=== PATIENT | female | born 1970 | race Caucasian/White ===

== ENCOUNTER 2016-11-27 20:49 | Emergency (ER) | payer BC ==
[~2016-11-27] VITALS: Ht 165.1 cm; Wt 77.2 kg
[~2016-11-27 20:49] MED LIST: ACETTAB3 OR; AMBIEN10 MG PO; AMOXICILLIN500 MG PO; AMOXICILLIN875 MG PO; AUGMENTIN500TAB PO; AUGMENTIN875TAB PO; CELEXA10 MG PO; CELEXA20 M1; DIFLUCAN150 MG PO; DILAUDID 2MG2 MG/TA1 PO; FIORICET PO; FLAGYL500 MG PO; FLUTICASONE50 MCG; KEFLEX500 MG PO; LORTAB 5-325 MG1 TAB PO; LYRICA75 MG PO; MEDDOSEPAK PO; ROBITUSSIN AC10 ML PO; TRAMADOL HCL50 MG PO; VENTOLIN HFA IN; WELLBUTRIN SR150 MG PO; XANAX0.25 MG PO
[2016-11-27] MEDS ORDERED: FLEXERIL5 MG PO (21:05)
[2016-11-27] MEDS ORDERED: FIORICET PO (21:59)
[2016-11-27 22:21] VITALS: BP 138/95
== END 2016-11-27 22:14 | disposition home or self-care (01) | DRG 103 ==
LOC: ED 20:49
DX: G43.909 Migraine, unspecified, not intractable, without status migrainosus (principal); R11.0 Nausea

== ENCOUNTER 2020-11-11 10:44 | Emergency (ER) | payer BC ==
[~2020-11-11] VITALS: Ht 165.1 cm; Wt 75.0 kg
[~2020-11-11 10:44] MED LIST changes: +FLEXERIL5 MG PO
[2020-11-11] MEDS ORDERED: PERCOCET 5/325M1 TAB PO (12:15)
[2020-11-11 13:09] VITALS: BP 144/77
== END 2020-11-11 13:09 | disposition home or self-care (01) | DRG 563 ==
LOC: ED 10:44
PROC: 2W3DX1Z Immobilization of Left Lower Arm using Splint (ICD-10-PCS; principal; 2020-11-11)
DX: S52.502A Unspecified fracture of the lower end of left radius, initial encounter for closed fracture (principal); V80.010A Animal-rider injured by fall from or being thrown from horse in noncollision accident, initial encounter; Y93.52 Activity, horseback riding; Y92.39 Other specified sports and athletic area as the place of occurrence of the external cause